=== PATIENT | male | born 1980 | race Two or more races ===

== ENCOUNTER 2024-08-12 15:44 | Emergency (ER) | payer OTHER, SELFPAY ==
[2024-08-12 15:47] VITALS: PULSE 80; RESP 16; O2SAT 98; BMI 29.7
--- NOTE | 2024-08-12 15:55 | PC.NURSE ---
[facility] LOG NUMBER [id number].
--- NOTE | 2024-08-12 15:59 | PC.NURSE ---
[facility] OFFICER HERE TO SPEAK WITH PATIENT.
[2024-08-12 16:15] VITALS: BP 185/92; PULSE 65; RESP 18; TEMP 36.9; O2SAT 99
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
[2024-08-12 21:22] VITALS: BP 169/88; PULSE 64; RESP 16; TEMP 37; O2SAT 100
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
[2024-08-12 21:55] VITALS: RESP 18
== END 2024-08-12 21:57 | disposition home or self-care (01) ==
PROVIDERS: Emergency Provider Emergency Medicine
DX: S80.02XA Contusion of left knee, initial encounter (principal); R07.9 Chest pain, unspecified; V89.2XXA Person injured in unspecified motor-vehicle accident, traffic, initial encounter; Y92.410 Unspecified street and highway as the place of occurrence of the external cause
CPT/HCPCS: 71250; 73562; 73630; 74176; 99284